=== PATIENT | female | born 1990 | race Hispanic/Latino ===

== ENCOUNTER 2017-02-17 00:52 | Inpatient (IN) | payer MEDICAID ==
[~2017-02-17] VITALS: Ht 152.4 cm; Wt 74.8 kg
[2017-02-17] MEDS ORDERED: Penicillin G K Inj 5,000,000 UNITS in Dextrose 5% Minibag Plus 100 ML IV ONE (03:45)
[2017-02-17] MEDS ORDERED: Carboprost 250 mCg/mL Inj IM PRN ×2 (03:45→10:55)
[2017-02-17] MEDS ORDERED: Sodium Chloride LOK Flush 10 mL Syringe IVFLUSH PRN (03:45)
[2017-02-17] MEDS ORDERED: Hemorrhage Kit, Post Partum XX ONE ×2 (03:45→10:55)
[2017-02-17] MEDS ORDERED: Oxytocin 30 Units/500 mL LR 30 UNITS in IV Premix 1 EACH IV PRN ×2 (03:45→10:55)
[2017-02-17] MEDS ORDERED: Methylergonovine 0.2 mg/mL Inj IM PRN ×2 (03:45→10:55)
[2017-02-17] MEDS ORDERED: Oxytocin 10 Unit/mL Inj IM PRN ×2 (03:45→10:55)
[2017-02-17 04:13] LABS: Mean Corpuscular Hemoglobin 35.5 pg (27.0-35.0)
[2017-02-17] MEDS: Lactated Ringer's 1,000 ML IV PRN ×2 (04:24→05:55)
[2017-02-17] MEDS ORDERED: fentaNYL-PF 50 mCg/mL 2 mL Inj IVPUSH PRN (05:50)
[2017-02-17] MEDS ORDERED: Ondansetron 2 mg/mL 2 mL Inj IVPUSH PRN (05:50)
[2017-02-17 06:44] LABS: BASOPHILS % (AUTO) 0.1 % (0-3); EOSINOPHILS % (AUTO) 0.1 % (0-5); MONOCYTES % (AUTO) 2.9 % (4-12); Mean Corpuscular Volume 102.7 fL (81-100); NEUTROPHILS % (AUTO) 87.1 % (40-74); Platelet Count 69 bil/L (150-400)
[2017-02-17] MEDS ORDERED: Penicillin G K Inj 3,000,000 UNITS in IV Premix 1 EACH IV SCH (08:30)
[2017-02-17] MEDS: Lactated Ringer's 1,000 ML IV SCH ×2 (10:51→18:51)
[2017-02-17] MEDS ORDERED: Benzocaine (Dermoplast) 20% 60 Gm Spray TOPICAL PRN (10:55)
[2017-02-17] MEDS ORDERED: Witch Hazel-Glycerin Pads TOPICAL PRN (10:55)
[2017-02-17] MEDS ORDERED: LANOlin HPA 7 Gm Ointment TOPICAL PRN (10:55)
--- NOTE | 2017-02-17 11:24 | OP ---
[address] [address] OPERATIVE REPORT PATIENT: NAGI RIVERA : 1990 MR#: [id number] ADMIT: 02/17/2017 JOB ID: [id number] DATE OF SURGERY: 02/17/2017 SURGEON: Flora Bernstein M.D. PREOPERATIVE DIAGNOSIS(ES): POSTOPERATIVE DIAGNOSIS(ES): DELIVERY NOTE: This is a 26-year-old female. She is 1, para 1 now. She presented to [facility] for labor. She is progressing spontaneously for her labor progress. She did not get epidural for pain because of low platelet count. She is doing well with her labor pain. Her heart tracing was reassuring, in the process of labor. An AROM was performed when she has anterior lip with clear fluid and then she progressed to full dilation. She was instructed to start to push. She has good effort to push. The delivered at an LATASHA position. The shoulder and chest delivered without difficulty. The was placed on mother's chest with spontaneous crying and a good tone. A delayed cord clamping performed 1 minute after delivery. Regular cord blood collected. The placenta delivered spontaneously completely and examined with three-vessel cord. After the delivery of the placenta, the uterus was massaged and the Pitocin started. The uterus contracted well. The perineum is examined with a second-degree laceration. This laceration was repaired with 2-0 Vicryl continuously. Hemostasis confirmed after repair. The patient tolerated the procedure well. All instrument, needles, laps and gauzes counted correct twice. EBL during delivery was 200 cc.
--- NOTE | 2017-02-17 11:25 | HP ---
[address] [address] HISTORY AND PHYSICAL PATIENT: NAGI RIVERA : 1990 MR#: [id number] ADMIT: 02/17/2017 JOB ID: [id number] HISTORY OF PRESENT ILLNESS: This is a 26-year-old female, 1, para 0, at 40 weeks plus one day presented to [facility] for contractions. She was noticed to be 3 cm dilated and progressed to 4 cm dilation. She has regular contractions and a category 1 heart tracing. She has no other discomfort. This is a patient who has been having regular care at [facility]. During her care, her blood type was O positive. Her H and H was 31.8/10.5. Her platelet count was normal range. Rubella immune, RPR negative, HIV negative. Diabetes screen test 69. ALLERGIES: She declined medication allergies. PAST SURGICAL HISTORY: She declined significant surgical history. OBSTETRICAL HISTORY: This is her first . GYNECOLOGIC HISTORY: Not significant. SOCIAL HISTORY: She is not smoking. Declined drinking alcohol or drug usage. FAMILY HISTORY: One uncle has Down syndrome. PHYSICAL EXAMINATION: She is afebrile. Blood pressure in normal range. Cardiac: RR. No murmur. Pulmonary: Bilaterally clear. Abdomen: Soft, nontender. Uterus well relaxed between contractions. Extremities: Nontender. Contraction every 3 minutes. heart tracing category one. LABORATORY: Her CBC at admission noted her H and H 12.3/35.3. Her platelet count was 76 and on repeat in 2 hours her platelet count was 69. ASSESSMENT AND PLAN: A 26-year-old female, 1, para 0, at 40 weeks one day. When I presented to my shift at 7:00, the patient was noted to be 5 cm dilated. She has been admitted to [facility]. Anesthesia discussed with patient that for the reading of her platelet count they will not do an epidural for pain management. The patient is dealing with her labor pain by the hot tub. Otherwise she is doing well. Will continue to monitor her labor progress. Will continue to give her penicillin for her positive GBS status. We expect a vaginal delivery. We will crossmatch 2 units of blood. At this time there is no concern of severe bleeding disorder with a isolated low platelet finding at 70s to 60s. Will follow up her platelet count after delivery.
[2017-02-18 07:20] LABS: Mean Corpuscular Hemoglobin 35.4 pg (27.0-35.0); Mean Corpuscular Volume 103.3 fL (81-100)
[2017-02-18 11:37] LABS: INR 0.88 ratio
--- NOTE | 2017-02-18 14:10 | PROG NOTE ---
[address] [address] PROGRESS NOTE PATIENT: NAGI RIVERA : 1990 MR#: [id number] ADMIT: 02/17/2017 JOB ID: [id number] DATE: Patient admitted in active labor. Today patient was day number one, status post spontaneous vaginal delivery, breast-feeding with no issues. Complains of dizziness when she stands up, blurry vision. She had an episode of shortness of breath yesterday that resolved with oxygen inhalation. Patient denied any chest pain, right upper quadrant pain, leg pain. EXAMINATION: Vital signs are 96/54 for blood pressure. Respirations are 18, pulse 76, temperature 36.5 degrees centigrade. Pulse ox of 98% on room air. Heart is regular rate and rhythm. Positive S1, S2. Lungs clear to auscultation bilaterally. Abdomen firm. Uterine fundus palpated at the level of the umbilicus. Nontender. Positive bowel sounds. Nondistended abdomen. No right upper quadrant tenderness. Perineum: No active bleeding. Lower extremities: No calf tenderness appreciated bilaterally. Deep tendon reflexes are 1+ upper, 1+ lower. LABORATORIES: This morning H and H is 10.8 and 31.5. Platelets are 66 down from 69 yesterday morning on February 17, 2017. It was 76 on admission, February 17, 2017, at 0405 a.m. Two hours and 21 minute later at 0626 it was 69 and this morning at 0645 it was 66. White blood count 13.6, blood group O-positive, antibody negative. ASSESSMENT AND PLAN: The patient is 26-year-old, 1, para 1, day number one, status post spontaneous vaginal delivery with severe thrombocytopenia. No workup was done. Will evaluate blood smear, preeclampsia labs, PT, PTT, fibrinogen. After discussing with Tawny Moreno MD, maternal medicine at [facility] and confirming plan with the patient as well, will proceed with workup and will repeat preeclampsia workup tomorrow morning as well including urine protein/creatinine ratio. Will continue with care for now. Consider platelet transfusion for platelet count less than 40 or asymptomatic .
[2017-02-19 06:47] LABS: BASOPHILS % (AUTO) 0.1 % (0-3); EOSINOPHILS % (AUTO) 1.8 % (0-5); MONOCYTES % (AUTO) 7.1 % (4-12); Mean Corpuscular Hemoglobin 35.7 pg (27.0-35.0); Mean Corpuscular Volume 105.6 fL (81-100); NEUTROPHILS % (AUTO) 68.3 % (40-74); Platelet Count 77 bil/L (150-400)
--- NOTE | 2017-02-19 07:54 | PCM.DIOB ---
Obstetrical Disch Instruction Dates of Hospitalization Date of Hospital Admission Feb 17, 2017 at 03:40 Providers Admitting Physician: Flora Bernstein MD Primary Care Physician: Merline Attending Physician: Flora Bernstein MD Diet Discharge Diet: No restrictions Activity Discharge Activity-General: Pelvic Rest for 6 weeks, Activity as energy allows , No lifting >10 pounds for 4-6 weeks Dressing and Incisional Care Hygiene: May shower, NO bathtub, hot tub or whirlpool, Perineal care, Sitz bath , Dermoplast spray Follow Up Plan Follow-up appointment: Weeks Call your provider for: Fever or Chills, Shortness of breath, Heavy vaginal bleeding Anastasiya Rider MD Feb 19, 2017 07:54
[2017-02-19] MEDS ORDERED: DOCU-41 PO (07:55)
[2017-02-19] MEDS ORDERED: IBUP800T28 PO (07:55)
--- NOTE | 2017-02-19 11:41 | PCM.DC.OB ---
Obstetrical Discharge Summary Date of Service Feb 19, 2017 Date of hospital admission Feb 17, 2017 at 03:40 Date of Discharge: Feb 19, 2017 Providers Admitting Physician: Flora Bernstein MD Primary Care Physician: Merline Attending Physician: Folra Bernstein MD Diagnosis at Time of Discharge S/P Problems: Brief History and Physical: Patient admitted in active labor 02/17/17. Today patient was day number two, status post spontaneous vaginal delivery, breast-feeding with no issues. Dizziness has resolved today, no blurry vision Patient denies any chest pain, right upper quadrant pain, leg pain. Hospital Course: Patient admitted in active labor 02/17/17. Status post spontaneous vaginal delivery 02/18/17, Patient began breast-feeding with no issues. Complains of dizziness when she stands up, blurry vision resolved at time of discharge. She had an episode of shortness of breath 02/17/17 that resolved with oxygen inhalation. At time of discharge Patient denied any chest pain, right upper quadrant pain, leg pain. At time of discharge bleeding is minimal with no clots. Initial labs showed severe thrombocytopenia which has improved on repeat labs. Docusate Sodium (Colace) 100 Mg Capsule 100 MG PO BID PRN PRN For Constipation Prescribed by: ANASTASIYA SIMON MD Ibuprofen (Ibuprofen) 800 Mg Tablet 800 MG PO TID PRN PRN For Pain Prescribed by: ANASTASIYA SIMON MD Disposition Discharge to home Follow-up plan Follow up in clinic in two weeks Discharge Diet: No restrictions Discharge Activity-General: Pelvic Rest for 6 weeks, No lifting >15 pounds for 2 weeks Attending Statement: Please see progress note for details, patient strongly desired d/c home on ppd#1, was discharged when meeting all postoperative goals. Plan to follow up in 2 weeks for incision check. copies to: Anastasiya Simon MD, AARON J DO Feb 19, 2017 11:41 Anastasiya Simon MD Feb 21, 2017 16:24
[2017-02-19 14:58] VITALS: BP 102/63; PULSE 77; RESP 16
--- NOTE | 2017-02-19 18:44 | DIS ---
[address] [address] DISCHARGE SUMMARY PATIENT: NAGI RIVERA : 1990 MR#: [id number] ADMIT: 02/17/2017 JOB ID: [id number] DIS: 02/19/2017 ADMISSION DIAGNOSIS: Labor. DISCHARGE DIAGNOSES: 1. Labor. 2. Severe thrombocytopenia. REASON FOR ADMISSION: This is a 26-year-old, G1, now P1-0-0-1 female who presented to the center at 40 weeks plus one day complaining of regular uterine contractions. She was noted to be 3 cm dilated and cervical change was documented. Because of this, she was then admitted in active labor. Her was complicated by late transfer of care from [place] in the middle of the . At the time of admission, she was noted to have thrombocytopenia with a platelet count of 76. HOSPITAL COURSE: The patient was admitted on the in active labor. She was noted to have thrombocytopenia with an admission platelet count of 76. She went on to undergo a spontaneous vaginal delivery without complications. On postoperative day one, her pain was well controlled. She was tolerating a regular diet, voiding and ambulating well on her own. Her platelets were rechecked and her platelets were noted to be 76 and then 69 on the day of admission and dropped to 66 on day one. Maternal Medicine was then consulted at that time given her severe thrombocytopenia and so PT, PTT and INR were collected which were normal. Her fibrinogen was high at 408 and PI labs were completed to evaluate for low platelets related to HELLP syndrome were all within normal limits. Additionally, she had normal blood pressures throughout her time on labor and delivery. She was kept until day number two and by day number two her platelets were rechecked and were noted to be stable and slightly increased from a low of 66 up to 77. Her hemoglobin was stable at 10.9 and her white count was normal at 9.5. She is otherwise meeting all goals, breast-feeding without difficulty and it was at this point in time that she was deemed stable for discharge. PHYSICAL EXAMINATION ON THE DAY OF DISCHARGE: On the day of discharge objectively, she is afebrile. Her vital signs are stable. In general, she is awake, alert, oriented, in no acute distress. Heart shows regular rate and rhythm. Her lungs are clear to auscultation bilaterally. Her abdomen is soft, it is appropriately tender, it is nondistended. Her extremities show no tenderness and no lower extremity edema. She was Rh positive, rubella immune, no vaccinations were indicated. She was deemed stable for discharge on day number two after her labs all returned within normal limits and her platelets appeared stable. She will be followed up in one week for a platelet recheck. INSTRUCTIONS AT DISCHARGE: The patient was advised to remain at pelvic rest for six weeks including no tampons, douching, or intercourse. She was asked to call with any signs or symptoms of infection including fever greater than 100.5 degrees, severe pain, malodorous vaginal discharge or bleeding more than a pad per hour. She was also given preeclampsia precautions including severe headaches, vision changes, and/or severe right upper quadrant pain. DISCHARGE MEDICATIONS: Medications at discharge included: 1. Ibuprofen 800 mg p.o. q.8 h. p.r.n. pain. 2. Colace 100 mg p.o. b.i.d. All questions and concerns of the patient were answered. She was deemed stable for discharge on day number two. JUANITO
== END 2017-02-19 18:35 | disposition home or self-care (01) | DRG 775 ==
LOC: FBCO 00:52 → FBC 03:40
PROVIDERS: ADMIT Obstetrics & Gynecology; ATTEND Obstetrics & Gynecology
PROC: 10E0XZZ Delivery of Products of Conception, External Approach (ICD-10-PCS; principal; 2017-02-17)
PROC: 0KQM0ZZ Repair Perineum Muscle, Open Approach (ICD-10-PCS; 2017-02-17)
PROC: 10907ZC Drainage of Amniotic Fluid, Therapeutic from Products of Conception, Via Natural or Artificial Opening (ICD-10-PCS; 2017-02-17)
DX: O99.12 Other diseases of the blood and blood-forming organs and certain disorders involving the immune mechanism complicating childbirth (principal); D69.6 Thrombocytopenia, unspecified; O99.824 Streptococcus B carrier state complicating childbirth; O70.1 Second degree perineal laceration during delivery; Z3A.40 40 weeks gestation of pregnancy; Z37.0 Single live birth